=== PATIENT | female | born 1985 | race Caucasian/White ===

== ENCOUNTER 2017-03-22 13:11 | Emergency (ER) | payer SELFPAY ==
--- NOTE | 2017-03-22 13:48 | EDM.PDOC ---
ED HPI GENERAL MEDICAL PROBLEM - General Chief Complaint: Upper Extremity Injury/Pain Stated Complaint: LT WRIST HURTS Time Seen by Provider: 03/22/17 13:44 - History of Present Illness INITIAL COMMENTS - FREE TEXT/NARRATIVE: HISTORY AND PHYSICAL: History of present illness: Patient 31-year-old female presents with concern about left wrist injury that occurred on Thursday when she fell she states she's had persistent pain and swelling since she denies other trauma or concern Review of systems: As per history of present illness and below otherwise all systems reviewed and negative. Past medical history: As per history of present illness and as reviewed below otherwise noncontributory. Surgical history: As per history of present illness and as reviewed below otherwise noncontributory. Social history: No reported history of drug or alcohol abuse. Family history: As per history of present illness and as reviewed below otherwise noncontributory. Physical exam: HEENT: Atraumatic, normocephalic, pupils reactive, negative for conjunctival pallor or scleral icterus, mucous membranes moist, throat clear, neck supple, nontender, trachea midline. Lungs: Clear to auscultation, breath sounds equal bilaterally, chest nontender. Heart: S1S2, regular, negative for clicks, rubs, or JVD. Abdomen: Soft, nondistended, nontender. Negative for masses or hepatosplenomegaly. Negative for costovertebral tenderness. Pelvis: Stable nontender. Genitourinary: Deferred. Rectal: Deferred. Extremities: Patient has tenderness swelling over the distal radius with limited range of motion secondary to pain is no gross deformity CMS neurovascular exam are unremarkable Neuro: Awake, alert, oriented. Cranial nerves II through XII unremarkable. Cerebellum unremarkable. Motor and sensory unremarkable throughout. Exam nonfocal. Diagnostics: X-ray left wrist Therapeutics: #1 thumb spica splint sling as directed Impression: #1 acute left wrist injury Definitive disposition and diagnosis as appropriate pending reevaluation and review of above. Left Wrist Pain Score (Numeric/FACES): 2 - Related Data Allergies Allergy/AdvReac Type Severity Reaction Status Date / Time No Known Allergies Allergy Verified 03/22/17 13:23 Home Meds: Home Meds . [No Known Home Meds] 07/29/13 [History] Past Medical History - Past Health History Medical/Surgical History: Denies Medical/Surgical History PALM AND BACK FORGER History: Reports: - Infectious Disease History Infectious Disease History: Reports: Chicken Pox Social & Family History - Family History Family Medical History: Noncontributory - Tobacco Use Smoking Status *Q: Never Smoker Second Hand Smoke Exposure: No - Caffeine Use Caffeine Use: Reports: None - Alcohol Use Days Per Week of Alcohol Use: 0 - Recreational Drug Use Recreational Drug Use: No Review of Systems - Review of Systems Review Of Systems: ROS reveals no pertinent complaints other than HPI. ED EXAM, GENERAL - Physical Exam Exam: See Below (See dictation) Course - Vital Signs Last Recorded V/S: Last Vital Signs Temp 37.1 C 03/22/17 13:20 Pulse 98 03/22/17 13:20 Resp 18 03/22/17 13:20 BP 122/75 03/22/17 13:20 Pulse Ox 98 03/22/17 13:20 - Orders/Labs/Meds Orders: Active Orders 24 hr Category Date Time Status Wrist 2V Lt [CR] Stat Exams 03/22/17 13:39 Taken Departure - Departure Time of Disposition: 14:03 Disposition: Home, Self-Care 01 Condition: Good Clinical Impression: Wrist injury - Discharge Information Referrals: PCP,None [Primary Care Provider] - Forms: ED Department Discharge Additional Instructions: The following information is given to patients seen in the emergency department who are being discharged to home. This information is to outline your options for follow-up care. We provide all patients seen in our emergency department with a follow-up referral. The need for follow-up, as well as the timing and circumstances, are variable depending upon the specifics of your emergency department visit. If you don't have a primary care physician on staff, we will provide you with a referral. We always advise you to contact your personal physician following an emergency department visit to inform them of the circumstance of the visit and for follow-up with them and/or the need for any referrals to a consulting specialist. The emergency department will also refer you to a specialist when appropriate. This referral assures that you have the opportunity for followup care with a specialist. All of these measure are taken in an effort to provide you with optimal care, which includes your followup. Under all circumstances we always encourage you to contact your private physician who remains a resource for coordinating your care. When calling for followup care, please make the office aware that this follow-up is from your recent emergency room visit. If for any reason you are refused follow-up, please contact the [facility] emergency department at and asked to speak to the emergency department charge nurse. [facility] [address], [address] [place] [address] Splint/sling as discussed Motrin and Tylenol as directed called schedule appointment with orthopedic clinic above return as needed as discussed
[2017-03-22 14:36] VITALS: BP 118/60
--- NOTE | 2017-03-23 16:18 | CR ---
EXAM DATE: 03/22/17 PATIENT'S AGE: 31 Patient: ROBERT OLIVAS Facility: [place], [place] Site . Site : 1985 Study: XRay Extremity Left wrist [id number]/28/2018 1:52:32 PM Ordering Physician: Doctor Park Final Report: INDICATION: Fall. Technique two-views. FINDINGS: No definitive radiographic evidence of fracture/dislocation. There is soft tissue swelling present. Mild narrowing of the STT joints. If there is continued symptomatology/clinical concern, consider repeat/delayed radiographic views and/or CT/MR imaging. Dictated by Ismael Nielson MD @ Mar 22 2017 2:32PM (Electronic Signature) Report Signed by Proxy. LEANDRA
== END 2017-03-22 14:31 | disposition home or self-care (01) ==
LOC: MW.ED 13:11
DX: S69.92XA Unspecified injury of left wrist, hand and finger(s), initial encounter (principal); W19.XXXA Unspecified fall, initial encounter
CPT/HCPCS: 73100-26-LT; 73100-LT; 99283